=== PATIENT | male | born 1965 | race Caucasian/White ===

== ENCOUNTER 2016-11-27 07:31 | Day surgery (SDC) | payer OTHER ==
[~2016-11-27] VITALS: Ht 167.6 cm; Wt 102.0 kg
[~2016-11-27 07:31] MED LIST: 0.9% Sodium Chloride 1,000 ML IV SCH; FLUT16SP NS; Sodium Chloride LOK Flush 10 mL Syringe IV PRN; fentaNYL-PF 50 mCg/mL 2 mL Inj IVPUSH PRN
[2016-11-27 07:58] VITALS: BP 131/84; PULSE 94; RESP 16; O2SAT 96
[2016-11-27] MEDS ORDERED: MULT-666 PO (07:58)
[2016-11-27 08:42] VITALS: BP 110/70; PULSE 80; RESP 14; O2SAT 90
[2016-11-27 08:52] VITALS: BP 102/60; PULSE 81; RESP 14; O2SAT 92
[2016-11-27 09:02] VITALS: BP 111/75; PULSE 91; RESP 16; O2SAT 97
--- NOTE | 2016-11-27 13:18 | ENDO ---
[address] [address] ENDOSCOPY PROCEDURE PATIENT: BARTOLOME CARRERA : 1965 MR#: [id number] ADMIT: 11/27/2016 JOB ID: [id number] DATE: 11/27/2016 PROCEDURE: Colonoscopy. INDICATIONS: Screening. The patient's ASA classification is 2. Mallampati score is 2. MEDICATIONS: 1. Versed 5 mg. 2. Fentanyl 100 mcg. INSTRUMENT USED: PCF H 180 AL. PREPARATION QUALITY: Was good. PROCEDURE DETAILS: After informed consent was obtained, the patient was brought into the GI suite, where he was placed on oxygen via nasal cannula and monitored with continuous pulse oximeter, telemetry and blood pressure monitoring. A time-out was performed. Then, he was placed in the left lateral decubitus position. Medications were administered for sedation. Digital rectal examination was performed and was unremarkable. The colonoscope was then inserted into the rectum and advanced under direct visualization to the cecum, which was identified by the presence of the ileocecal valve and appendiceal orifice. Once the cecum was reached, the colonoscope was withdrawn back into the rectum as the mucosa and lumen were examined. In the rectum, retroflexion was performed. Following retroflexion, remaining air in the rectum was suctioned, and the procedure was completed. FINDINGS: 1. In the ascending colon, there was an approximately 5 mm sessile polyp was removed with a cold snare. 2. Otherwise normal examination from rectum to cecum. IMPRESSION: Ascending colon polyp. RECOMMENDATIONS: Repeat colonoscopy pending polyp pathology results. COMPLICATIONS: None. ESTIMATED BLOOD LOSS: Less than 5 mL.
--- NOTE | 2016-11-30 14:19 | PATH ---
SURGICAL PATHOLOGY Attending Physician:Mateusz Conde CASE STATUS: Signed Out PATIENT NAME: BARTOLOME CARRERA PID: [id number] : 1965 DATE COLLECTED:11/27/2016 21:10 SPECIMEN: Colon, Biopsy CLINICAL HISTORY: 1). ASCENDING COLON POLYP FINAL DIAGNOSIS: 1.ASCENDING COLON POLYP: TUBULAR ADENOMA INVOLVING ALL BIOPSY FRAGMENTS. ICD10 CODE D12.2 GROSS DESCRIPTION: Received in formalin, labeled with the patient' s name and "ascending colon polyp", are three fragments of mccoy, soft tissue ranging in size from 0.1 x 0.1 x 0.1 cm to 0.2 x 0.1 x 0.1 cm. All fragments are totally submitted in one cassette. ([id number]) MICRO DESCRIPTION: See diagnosis. ICD-9 CODES: CPT CODES: 1: 22362 Electronically Signed Out Alberto Holbrook MD [facility] Pathology [facility] [address] [facility], [place] [address] Technical component performed at [facility], [facility] [address], [address]
== END 2016-11-27 23:59 | disposition home or self-care (01) ==
LOC: END 07:31
PROVIDERS: ATTEND Internal Medicine Gastroenterology
DX: Z12.11 Encounter for screening for malignant neoplasm of colon (principal); D12.2 Benign neoplasm of ascending colon
CPT/HCPCS: 45385; G0500; J2250; J3010; J7030